=== PATIENT | female | born 1945 | race Caucasian/White ===

== ENCOUNTER 2025-04-13 13:18 | Emergency (ER) | payer BC, MEDICAID ==
[~2025-04-13] VITALS: Ht 167.6 cm; Wt 107.0 kg
[~2025-04-13 13:18] MED LIST: VENL-191 PO
[2025-04-13 14:07] LABS: MEAN PLATELET VOLUME 9.2 FL (7.4-10.4); RED CELL DISTRIBUTION WIDTH 17.2 % (11.5-14.5)
--- NOTE | 2025-04-13 14:11 | ELECTROCARDIOGRAPH REPORT ---
[facility] Test Date: 2025-04-13 Test Time: 14:09:29 Pat Name: KENY LONG Department: [facility]- Patient ID: [facility]-[id number] Room: Gender: F [employer]: : 1945 Requested By: ZAK URRUTIA Order Number: [id number] Reading MD: Dr. Rolando Gonsalez Measurements Intervals [place] Rate: 77 P: 72 [place]: 148 QRS: -57 QRSD: 105 T: 40 QT: 412 QTc: 467 Interpretive Statements Sinus rhythm Probable left atrial enlargement Incomplete RBBB and LAFB Low voltage, precordial leads Consider right ventricular hypertrophy Consider anterior infarct Baseline wander in lead(s) V6 Electronically Signed On 04-15-2025 11:17:[address] Rolando Gonsalez Please click the below link to view image of tracing.
[2025-04-13 14:27] LABS: CREATININE 0.69 MG/DL (0.40-0.90); PRO BRAIN NATRIURETIC PEPTIDE 558 PG/ML (0-450); TOTAL CARBON DIOXIDE 30.2 MMOL/L (24-32); eCRCL 64 ML/MIN; eGFR 82 ML/MIN
--- NOTE | 2025-04-13 15:17 | RADIOLOGY REPORT ---
CHEST RADIOGRAPH INDICATION: CP TECHNIQUE: Single frontal view of the chest was obtained COMPARISON: None FINDINGS: Lines and Tubes: None Lungs: No focal consolidation. Pleura: No effusion. No pneumothorax. Cardiomediastinal contours: Size is within normal limits. Prominence of the pulmonary arteries which may be seen with pulmonary arterial hypertension. Bones: No acute osseous abnormality. IMPRESSION: Prominence of the pulmonary arteries which may be seen with pulmonary arterial hypertension. Otherwise, no evidence for acute cardiopulmonary disease.
[2025-04-13] MEDS ORDERED: UMEC1DIS INH (15:27)
[2025-04-13] MEDS ORDERED: FURO-150 PO (15:54)
--- NOTE | 2025-04-13 15:54 | Physician Documentation ---
History of Present Illness ~ Chief Complaint: Extremity Swelling Stated Complaint: MULTIPLE MED COMPLAINTS Time Seen by MD: 15:28 Source: patient, family Mode of Arrival: POV Exam Limitations: no limitations HPI 79-year-old female has noticed more swelling to her lower extremities over the past 2 weeks. Patient states that she always has chronic swelling of her lower extremities but was never told she had congestive heart failure. Patient does not take a diuretic. Patient has had some increased wheezing with the weather change and has been sleeping a lot but no chest pain. Patient does see a relief pharmacist for routine visits and saw her relief pharmacist 2 months ago with current echo and stress test being normal. Patient states with the weather change and being a little less active she noticed the swelling go from her ankles up to her knees. Patient does not have compression stockings but has been told she has vascular insufficiency. Patient does try to stay active. Medication Reconciliation Allergies: Coded Allergies: codeine (Verified Allergy, Severe, SEIZURE, 04/13/25) diazepam (Verified Adverse Reaction, Mild, HYPER, 04/13/25) Scheduled Umeclidinium Brm/Vilanterol Tr (Anoro Ellipta 62.5-25 Mcg INH), 1 PUFFS INH DAILY, (Reported) Discontinued Medications Venlafaxine Hcl* (Effexor*), 2 TABLET PO DAILY, (Reported) Discontinued Reason: patient no longer taking Past Medical History Past Medical History: *CARDIOVASCULAR*, High Cholesterol, Hypertension, Valve Insuffciency, Vascular Disease Past Surgical History: noncontributory Lives with: Family Lives In: Home Occupation: retired Review of Systems All Other Systems at this time: Reviewed and Negative Respiratory: Reports: see HPI Cardiovascular: Reports: see HPI Physical Exam Vital Signs: RN Vital Signs have been reviewed: Yes, Temperature: 97.9, Source: Oral, Heart Rate: 85, Respiratory Rate: 14, BP: 174/82, Pulse Oximetry: 96, Weight: 107.000 Oxygen Flow Rate: 0 General Appearance General: Alert, no apparent distress. HEENT: PERRL, EOMI, no injection, moist mucous membranes. Neck: Full range of motion. Respiratory: Lungs clear, no respiratory distress. Speaking in full sentences no wheezing Chest: No accessory muscle use. Cardiovascular: Regular rate and rhythm, no murmurs. Extremities: Normal range of motion, no deformity. Plus two pedal pulses and pedal edema multiple areas of varicosities no erythema or tenderness Neurologic: Oriented x4. Psychiatric: Normal mood and affect. Skin: Normal color, warm and dry. No edema, no ecchymosis. Progress Results/Orders Results/Orders Vital Signs 04/13/25 04/13/25 04/13/25 13:30 15:19 15:21 Temp 97.9 97.9 Pulse 80 85 Resp 16 12 14 B/P (MAP) 162/88 174/82 (112) Pulse Ox 97 96 O2 Flow Rate 0 0 FiO2 21 Laboratory Tests Test 04/13/25 13:52 White Blood Count 8.1 Red Blood Count 4.67 Hemoglobin 14.2 Hematocrit 42.9 Mean Corpuscular Volume 92.0 Mean Corpuscular Hemoglobin 30.4 Mean Corpuscular Hemoglobin Concent 33.0 Red Cell Distribution Width 17.2 H Platelet Count 304 Mean Platelet Volume 9.2 Neutrophils (%) (Auto) 50.3 Lymphocytes (%) (Auto) 35.1 Monocytes (%) (Auto) 9.4 Eosinophils (%) (Auto) 4.3 Basophils (%) (Auto) 0.9 Neutrophils # (Auto) 4.1 Lymphocytes # (Auto) 2.8 Monocytes # (Auto) 0.8 Eosinophils # (Auto) 0.3 Basophils # (Auto) 0.1 CBC Comment Sodium Level 145 Potassium Level 4.7 Chloride Level 109 H Carbon Dioxide Level 30.2 Anion Gap 6 L Blood Urea Nitrogen 15 Creatinine 0.69 Estimated GFR/1.73 m2 82 BUN/Creatinine Ratio 21.7 H Glucose Level 97 Calcium Level 9.2 Troponin I High Sensitivity 9 Pro-B-Type Natriuretic Peptide 558 H Albumin 3.3 L Chemistry Comments EKG/XRAY/CT/US/VASC/MRI EKG : Additional Comment EKG shows sinus rhythm at 77 left atrial enlargement no acute ST-T abnormalities Chest X-Ray : Additional Comments CHEST RADIOGRAPH INDICATION: CP TECHNIQUE: Single frontal view of the chest was obtained COMPARISON: None FINDINGS: Lines and Tubes: None Lungs: No focal consolidation. Pleura: No effusion. No pneumothorax. Cardiomediastinal contours: Size is within normal limits. Prominence of the pulmonary arteries which may be seen with pulmonary arterial hypertension. Bones: No acute osseous abnormality. IMPRESSION: Prominence of the pulmonary arteries which may be seen with pulmonary arterial hypertension. Otherwise, no evidence for acute cardiopulmonary disease. Heart Score: Heart Score Response (Comments) Value History Slightly Suspicious 0 EKG Normal 0 Age >65 2 Risk Factors 1 or 2 risk factors 1 Troponin Normal limit 0 Total 3 Medical Decision Making Additional information obtaine: old records, family Findings Patient has history of venous insufficiency denies history of CHF. ProBNP is 500. Patient recently saw relief pharmacist 2 months ago with a clean bill of health. Patient has adequate follow up in desires to be discharged home. No wheezing lung sounds clear vital signs reassuring. Likely chronic vascular insufficiency due to the weather and decreased mobility not going in the pool sh e has fluid buildup in her lower extremities. Discussed compression stockings follow up with primary cardiology Differential Dx:Considerations: Include: Cellulitis, Deep venous thrombosis, Strain, Venous insufficiency, Other Departure Time of Disposition: 15:53 Disposition: 01 HOME / SELF CARE / HOMELESS Impression: Primary Impression: Edema of lower extremity Condition: Stable Discharge Instructions: Edema, [id number] Additional Instructions: Follow up with primary care as we discussed potentially swell endeavors which helps with chronic edema or even vascular with Dr. Tong to see if there is any treatment for your chronic edema. Monitor for any new or worsening symptoms and feel free to return to the ER. Referrals: NO PRIMARY CARE PROVIDER (PCP) Prescriptions Furosemide (LASIX) 20 Mg Tablet 1 TAB PO DAILY for 7 Days, #7 TAB 0 Refills Prov: LISA HARRIS NP 04/13/25 Education Educated: Patient, Family Educated regarding: diagnosis, treatment, need for follow up Signature Scribe Signature: No scribe Attestation: The note accurately reflects work and decisions made by me.Lisa VEGA 04/13/25 15:54 LISA HARRIS NP Apr 13, 2025 15:54
[2025-04-13 16:04] VITALS: BP 160/94; PULSE 72; RESP 18; TEMP 97.9; O2SAT 96
== END 2025-04-13 16:14 | disposition home or self-care (01) ==
LOC: ER 13:19
DX: R60.0 Localized edema (principal); E78.00 Pure hypercholesterolemia, unspecified; I10 Essential (primary) hypertension; Z88.5 Allergy status to narcotic agent; Z88.8 Allergy status to other drugs, medicaments and biological substances; Z79.899 Other long term (current) drug therapy
CPT/HCPCS: 36415; 71045; 80048; 83880; 84484; 85025; 93005; 99285